=== PATIENT | female | born 1945 | race Caucasian/White ===

== ENCOUNTER → 2016-12-25 | Outpatient (CLI) | payer MEDICARE, OTHER ==
[2016-12-25 10:15] LABS: ADD SCAN DIFF NO
[2016-12-25 10:25] LABS: BASOPHILS % 0.4 % (0.0-2.0); EOSINOPHILS # 0.1 10^3/ul (0.0-0.5); EOSINOPHILS % 1.3 % (0.0-7.0); HEMATOCRIT 40.4 % (37.0-47.0); HEMOGLOBIN 13.8 g/dl (12.0-16.0); LYMPHOCYTES # 2.8 10^3/ul (0.8-2.9); LYMPHOCYTES % 30.4 % (15.0-51.0); MEAN CORPUSCULAR HEMOGLOBIN 30.5 pg (29.0-33.0); MEAN CORPUSCULAR HGB CONC 34.2 g/dl (32.0-37.0); MEAN CORPUSCULAR VOLUME 89.2 fl (82.0-101.0); MEAN PLATELET VOLUME 9.1 fl (7.4-10.4); MONOCYTE # 0.8 10^3/ul (0.3-0.9); MONOCYTES % 8.4 % (0.0-11.0); NEUTROPHIL # 5.4 10^3/ul (1.6-7.5); NEUTROPHILS % 59.4 % (39.0-77.0); PLATELET COUNT 275 10^3/UL (140-415); RED BLOOD COUNT 4.53 10^6/ul (4.20-5.40); RED CELL DISTRIBUTION WIDTH 12.9 % (11.5-14.5); WHITE BLOOD COUNT 9.1 10^3/ul (4.8-10.8)
[2016-12-25 10:29] LABS: ALBUMIN 4.3 g/dl (3.3-4.9); POTASSIUM 4.9 mmol/L (3.5-5.1)
[2016-12-25 10:31] LABS: CREATININE 0.88 mg/dl (0.44-1.00)
[2016-12-25 10:32] LABS: ALBUMIN/GLOBULIN RATIO 1.16; BILIRUBIN,INDIRECT 0.5 mg/dl (0-1.1); BILIRUBIN,TOTAL 0.5 mg/dl (0.2-1.3); CALCIUM 9.5 mg/dl (8.4-10.2); CHOL/HDL RATIO 2.6 RATIO
[2016-12-26 16:02] LABS: MICROALBUMIN 1.3 mg/dL
== END | disposition home or self-care (01) ==
LOC: LAB 09:48
PROVIDERS: ATTEND Internal Medicine Nephrology
DX: E11.9 Type 2 diabetes mellitus without complications (principal)
CPT/HCPCS: 80053; 80061; 82043; 82652; 83036; 85025

== ENCOUNTER → 2017-01-09 | Outpatient (CLI) | payer MEDICARE, OTHER | END | disposition home or self-care (01) | LOC: EKG 08:48 | PROVIDERS: ATTEND Internal Medicine Nephrology | DX: E11.9 Type 2 diabetes mellitus without complications (principal); I10 Essential (primary) hypertension | CPT/HCPCS: 93005; 93306 ==

== ENCOUNTER 2017-05-28 08:00 | Emergency (ER) | payer MEDICARE, OTHER ==
[~2017-05-28] VITALS: Ht 152.4 cm; Wt 58.0 kg
[2017-05-28 08:03] VITALS: Ht 152.4 cm; Wt 58.0 kg
--- NOTE | 2017-05-28 08:33 | ERD ---
ER Documentation Chief Complaint Date/Time DATE: 05/28/17 TIME: 08:29 Chief Complaint bleeding gums this morning, resolved now, not taking blood thinners HPI Patient is a 71-year-old female who presents stating that early this morning at about 5 AM her right upper gums were bleeding. She then soaked a cotton ball and hydrogen peroxide and applied it to the area and applied pressure and it has now resolved. She states she takes aspirin daily. She denies any pain. Denies trauma. Denies any difficulty eating drinking or swallowing. She has not seen a dentist and denies any recent dental work. No fever. No lightheadedness, headache, or dizziness. ROS All systems reviewed and are negative except as per history of present illness. Allergies Allergies: Coded Allergies: Penicillins (Verified Allergy, Mild, rash, 05/28/17) PMhx/Soc Medical and Surgical Hx: pt denies Medical Hx, pt denies Surgical Hx Hx Alcohol Use: No Hx Substance Use: No Hx Tobacco Use: No Smoking Status: Never smoker FmHx Family History: diabetes Physical Exam Vitals Vital Signs Date Time Temp Pulse Resp B/P Pulse Ox O2 Delivery O2 Flow Rate FiO2 05/28/17 08:03 98.2 80 18 175/77 99 Physical Exam INITIAL VITAL SIGNS: Reviewed by me GENERAL: Awake, alert and oriented x 4, well appearing, nontoxic, speaking in full sentences. No acute distress HEAD: Atraumatic EYES: EOMI. PERRL. NOSE: Normal nose. THROAT: No tonilar erythema or edema. No exudates. Uvula midline. No kissing tonsils. no active bleeding NECK: Supple. No masses. Full range of motion. No meningismus. No midline tenderness. RESPIRATORY: Clear to auscultation bilaterally. Symmetric chest wall rise. No wheezing or rales. No accessory muscle use. CV: Regular rate and rhythm. No murmurs, rubs, or gallops. Procedures/MDM 71-year-old female presents because she had bleeding from her gums this morning. The bleeding is now resolved. She has no headache or dizziness. No pain. No fever. Her exam is normal. Patient's blood pressure was elevated (> 120/80) but appears stable without evidence of hypertension emergency or urgency. The patient was counseled about the risks of hypertension and urged to pursue outpatient monitoring and therapy within a week with their primary care physician. I also recommended she follow up with the dentist. No evidence of oral infection at this time. Patient counseled regarding my diagnostic impression and care plan. Prior to discharge all questions answered. Pt agrees with treatment plan and understands strict return precautions. Pt is instructed to follow up with primary care provider within 24-48 hours. Precautionary instructions provided including instructions to return to the ER if not improving or for any worsening or changing symptoms or concerns. Departure Diagnosis: Primary Impression: Bleeding gums Condition: Stable Patient Instructions: Dental Pain Additional Instructions: Llame al doctor MONIKA y jaydon wilver ALINA PARA DENTRO DE 1-2 CURRY.Dgale a la secretaria que nosotros le instruimos hacer esta alina.Avise o llame si nair condicin se empeora antes de la alina. Regresa aqui si peor o no mejor. JOANNA HOPPER PA-C May 28, 2017 08:33
== END 2017-05-28 08:39 | disposition home or self-care (01) ==
LOC: FTE 08:00
DX: K06.8 Other specified disorders of gingiva and edentulous alveolar ridge (principal)
CPT/HCPCS: 99282

== ENCOUNTER 2017-06-02 12:21 | Emergency (ER) | payer MEDICARE, OTHER ==
[~2017-06-02] VITALS: Ht 170.2 cm; Wt 98.7 kg
[2017-06-02 12:29] VITALS: Ht 170.2 cm; Wt 98.7 kg
[2017-06-02 13:19] LABS: BASOPHIL # 0.1 10^3/ul (0.0-0.1); BASOPHILS % 0.6 % (0.0-2.0); EOSINOPHILS # 0.3 10^3/ul (0.0-0.5); EOSINOPHILS % 2.7 % (0.0-7.0); HEMOGLOBIN 14.3 g/dl (12.0-16.0); LYMPHOCYTES # 2.7 10^3/ul (0.8-2.9); LYMPHOCYTES % 22.9 % (15.0-51.0); MEAN CORPUSCULAR HEMOGLOBIN 31.2 pg (29.0-33.0); MEAN CORPUSCULAR HGB CONC 35.8 g/dl (32.0-37.0); MEAN CORPUSCULAR VOLUME 87.1 fl (82.0-101.0); MEAN PLATELET VOLUME 9.1 fl (7.4-10.4); MONOCYTE # 0.9 10^3/ul (0.3-0.9); MONOCYTES % 7.5 % (0.0-11.0); NEUTROPHIL # 7.7 10^3/ul (1.6-7.5); PLATELET COUNT 287 10^3/UL (140-415); RED BLOOD COUNT 4.59 10^6/ul (4.20-5.40); RED CELL DISTRIBUTION WIDTH 12.8 % (11.5-14.5); WHITE BLOOD COUNT 11.7 10^3/ul (4.8-10.8)
[2017-06-02 13:32] LABS: INR 0.89; PT RATIO 0.9
[2017-06-02 13:33] LABS: PARTIAL THROMBOPLASTIN TIME 28.2 Sec (25.0-35.0)
[2017-06-02 14:23] LABS: ALBUMIN 4.9 g/dl (3.3-4.9); ALBUMIN/GLOBULIN RATIO 1.48; BILIRUBIN,INDIRECT 0.3 mg/dl (0-1.1); BILIRUBIN,TOTAL 0.3 mg/dl (0.2-1.3); CALCIUM 10.3 mg/dl (8.4-10.2); CREATININE 0.92 mg/dl (0.44-1.00); POTASSIUM 4.3 mmol/L (3.5-5.1); TOTAL PROTEIN 8.2 g/dl (6.1-8.1)
--- NOTE | 2017-06-02 20:27 | ERD ---
ER Documentation Chief Complaint Date/Time DATE: 06/02/17 TIME: 20:15 Chief Complaint bleeding gums x 6 days , dentist x 6 days ago , no blood thiinners HPI 71-year-old female brought in by her daughter complaining of bleeding in her gums. Patient stated that she was seen here 5 days ago for the bleeding in her right upper gum. The bleeding had resolved at that time. She was told to follow-up with a dentist. She went to the dentist the following day, and was told that her gums are fine. This morning, she started bleeding again. She apply cotton ball to the gum to stop the bleeding. She called her PCP, Dr. Darvin Marquez this morning for an appointment. She was told by her doctor office to come to ED if to get a blood test done. Patient reports feeling tired , but denies fever or chills. Denies trauma. Denies headache. Denies chest pain. Denies shortness of breath. Patient has history of diabetes, hypertension, hypercholesterolemia, and glaucoma. ROS All systems reviewed and are negative except as per history of present illness. Allergies Allergies: Coded Allergies: Penicillins (Verified Allergy, Mild, rash, 05/28/17) PMhx/Soc History of Surgery: No Anesthesia Reaction: No Hx Neurological Disorder: No Hx Respiratory Disorders: No Hx Cardiac Disorders: Yes (HTN) Hx Psychiatric Problems: No Hx Miscellaneous Medical Probl: Yes (DIABETES) Hx Alcohol Use: No Hx Substance Use: No Hx Tobacco Use: No Smoking Status: Never smoker Physical Exam Vitals Vital Signs Date Time Temp Pulse Resp B/P Pulse Ox O2 Delivery O2 Flow Rate FiO2 06/02/17 12:29 98.6 74 17 196/88 100 Physical Exam General: Well-developed, well-nourished, conscious and coherent, in no distress Skin: Warm and dry without rash, good texture and turgor Head: Normocephalic without evidence of trauma Eyes: Sclera and conjunctivae normal; pupils equal, round, and reactive to light; extraocular movements are intact Mouth/throat: Mucous membranes are moist. Cotton balls removed from patient' s mouth, partially soaked with old blood. No active gum bleeding noted. Neck: Supple without meningismus or adenopathy. Carotids are equal. Trachea midline. No bruits or JVD Chest: Normal AP diameter. Good expansion without retractions. Nontender. Lungs are clear to auscultate bilaterally with good tidal volume Heart: Regular rate and rhythm. No murmur, rub, or gallops heard Extremities: Full range of motion. Good strength bilaterally. No clubbing, cyanosis, or edema. Peripheral pulses are intact. Sensation intact Neuro: Alert and oriented 4, GCS 15. Cranial nerves grossly intact. Motor and sensory exams nonfocal. Moves all extremities. Speech clear. Gait normal Result Diagram: 06/02/17 1310 06/02/17 1310 Results 24 hrs Laboratory Tests Test 06/02/17 13:10 White Blood Count 11.710^3/ul Red Blood Count 4.5910^6/ul Hemoglobin 14.3g/dl Hematocrit 40.0% Mean Corpuscular Volume 87.1fl Mean Corpuscular Hemoglobin 31.2pg Mean Corpuscular Hemoglobin Concent 35.8g/dl Red Cell Distribution Width 12.8% Platelet Count 21291^3/UL Mean Platelet Volume 9.1fl Neutrophils % 66.0% Lymphocytes % 22.9% Monocytes % 7.5% Eosinophils % 2.7% Basophils % 0.6% Nucleated Red Blood Cells % 0.0/100WBC Neutrophils # 7.710^3/ul Lymphocytes # 2.710^3/ul Monocytes # 0.910^3/ul Eosinophils # 0.310^3/ul Basophils # 0.110^3/ul Nucleated Red Blood Cells # 0.010^3/ul Prothrombin Time 12.0Sec Prothrombin Time Ratio 0.9 INR International Normalized Ratio 0.89 Activated Partial Thromboplast Time 28.2Sec Sodium Level 140mmol/L Potassium Level 4.3mmol/L Chloride Level 102mmol/L Carbon Dioxide Level 22mmol/L Anion Gap 20 Blood Urea Nitrogen 12mg/dl Creatinine 0.92mg/dl Glucose Level 69mg/dl Calcium Level 10.3mg/dl Total Bilirubin 0.3mg/dl Direct Bilirubin 0.00mg/dl Indirect Bilirubin 0.3mg/dl Aspartate Amino Transf (AST/SGOT) 33IU/L Alanine Aminotransferase (ALT/SGPT) 37IU/L Alkaline Phosphatase 85IU/L Total Protein 8.2g/dl Albumin 4.9g/dl Globulin 3.30g/dl Albumin/Globulin Ratio 1.48 Procedures/MDM Well-appearing 71-year-old female presented to ED with 2 episodes gum bleeding in the last week. CBC, CMP, PT/PTT was obtained. All were unremarkable. Although patient did not tell me she is taking aspirin when asked about her daily medications, review of her previous visit records show that she does take aspirin daily. Patient's blood pressure today is also elevated, likely contribute to her gum bleeding. Patient is under the care of her PCP for diabetes and hypertension, I do not think that she has a hypertensive crisis at this time. Patient appears well, stable for discharge and outpatient management. Medical decision making shared with patient and family. Education provided to patient and family. Patient and family expressed understanding of the plan. Medications on discharge: None. Follow-up: Primary care provider in 2-3 days or return to ED if worse. Disclaimer: Inadvertent spelling and grammatical errors are likely due to EHR/ dictation software use and do not reflect on the overall quality of patient care. Also, please note that the electronic time recorded on this note does not necessarily reflect the actual time of the patient encounter. Departure Diagnosis: Primary Impression: Bleeding gums Condition: Stable Patient Instructions: Understanding Healthy Teeth and Gums Additional Instructions: Llame al doctor MAANA y jaydon wilver ALINA PARA DENTRO DE 2-3 CURRY.Dgale a la secretaria que nosotros le instruimos hacer esta alina.Avise o llame si nair condicin se empeora antes de la alina. Regresa aqui si peor o no mejor. PATO SOLIS NP Jun 02, 2017 20:27
== END 2017-06-02 14:57 | disposition home or self-care (01) ==
LOC: FTE 12:21
DX: K06.8 Other specified disorders of gingiva and edentulous alveolar ridge (principal); I10 Essential (primary) hypertension; E11.9 Type 2 diabetes mellitus without complications
CPT/HCPCS: 80053; 85025; 85610; 85730; 99283

== ENCOUNTER → 2017-07-07 | Outpatient (CLI) | payer MEDICARE, OTHER ==
[2017-07-07 11:04] LABS: BASOPHIL # 0.1 10^3/ul (0.0-0.1); BASOPHILS % 0.7 % (0.0-2.0); EOSINOPHILS # 0.5 10^3/ul (0.0-0.5); EOSINOPHILS % 4.3 % (0.0-7.0); HEMATOCRIT 40.2 % (37.0-47.0); HEMOGLOBIN 13.8 g/dl (12.0-16.0); LYMPHOCYTES # 3.1 10^3/ul (0.8-2.9); MEAN CORPUSCULAR HEMOGLOBIN 31.1 pg (29.0-33.0); MEAN CORPUSCULAR HGB CONC 34.3 g/dl (32.0-37.0); MEAN CORPUSCULAR VOLUME 90.5 fl (82.0-101.0); MEAN PLATELET VOLUME 8.9 fl (7.4-10.4); MONOCYTE # 0.8 10^3/ul (0.3-0.9); MONOCYTES % 7.2 % (0.0-11.0); NEUTROPHILS % 58.5 % (39.0-77.0); PLATELET COUNT 290 10^3/UL (140-415); RED BLOOD COUNT 4.44 10^6/ul (4.20-5.40); RED CELL DISTRIBUTION WIDTH 12.8 % (11.5-14.5); WHITE BLOOD COUNT 10.6 10^3/ul (4.8-10.8)
[2017-07-07 11:29] LABS: ALBUMIN 4.4 g/dl (3.3-4.9); ALBUMIN/GLOBULIN RATIO 1.25; BILIRUBIN,INDIRECT 0.4 mg/dl (0-1.1); BILIRUBIN,TOTAL 0.4 mg/dl (0.2-1.3); CALCIUM 9.9 mg/dl (8.4-10.2); CREATININE 0.95 mg/dl (0.44-1.00); POTASSIUM 4.6 mmol/L (3.5-5.1); TOTAL PROTEIN 7.9 g/dl (6.1-8.1); URIC ACID 4.5 mg/dl (3.1-7.9)
[2017-07-07 11:57] LABS: ADD UMIC YES; UR ASCORBIC ACID NEGATIVE (NEGATIVE); UR BILIRUBIN (Dip) NEGATIVE (NEGATIVE); UR BLOOD (Dip) NEGATIVE (NEGATIVE); UR CLARITY CLEAR (CLEAR); UR COLOR YELLOW (YELLOW); UR GLUCOSE (Dip) 1+ mg/dL (NEGATIVE); UR KETONES (Dip) TRACE mg/dL (NEGATIVE); UR LEUKOCYTE ESTERASE (Dip) 1+ Leu/ul (NEGATIVE); UR NITRITE (Dip) NEGATIVE (NEGATIVE); UR RBC 2 /HPF (0-5); UR TOTAL PROTEIN (Dip) NEGATIVE (NEGATIVE); UR UROBILINOGEN (Dip) NEGATIVE (NEGATIVE)
[2017-07-08 14:32] LABS: MICROALBUMIN 0.6 mg/dL
== END | disposition home or self-care (01) ==
LOC: LAB 10:32
PROVIDERS: ATTEND Internal Medicine Nephrology
DX: N18.9 Chronic kidney disease, unspecified (principal); E11.29 Type 2 diabetes mellitus with other diabetic kidney complication
CPT/HCPCS: 80053; 80061; 81001; 82043; 83036; 84560; 85025

== ENCOUNTER → 2017-11-19 | Outpatient (CLI) | END | disposition home or self-care (01) ==

== ENCOUNTER → 2018-01-07 | Outpatient (CLI) | END | disposition home or self-care (01) ==

== ENCOUNTER → 2018-02-19 | Outpatient (CLI) | END | disposition home or self-care (01) ==

== ENCOUNTER → 2018-06-08 | Outpatient (CLI) | END | disposition home or self-care (01) ==

== ENCOUNTER → 2019-01-19 | Outpatient (CLI) | payer MEDICARE, OTHER | END | disposition home or self-care (01) | LOC: LAB 10:28 | PROVIDERS: ATTEND Internal Medicine Nephrology | DX: N18.9 Chronic kidney disease, unspecified (principal); E11.8 Type 2 diabetes mellitus with unspecified complications | CPT/HCPCS: 80053; 80061; 81001; 82043; 83036; 85025; 85610; 85730 ==

== ENCOUNTER 2019-05-03 11:06 | Emergency (ER) | payer MEDICARE, OTHER ==
[~2019-05-03] VITALS: Ht 157.5 cm; Wt 55.5 kg
[2019-05-03 11:13] VITALS: BP 173/73; PULSE 73; RESP 18; Ht 157.5 cm; Wt 55.5 kg
[2019-05-03] MEDS ORDERED: HC30CR25 TOP (12:07)
--- NOTE | 2019-05-03 13:13 | ERD ---
ER Documentation Chief Complaint Chief Complaint painful itchy possible bites bilateral ankle x4 days HPI Patient is a 73-year-old female with hypertension and diabetes who presents with bites to the legs bilaterally. The patient said that she was in her garden on Friday and noticed insect bites to the bilateral ankles. The area of the bites are red and itchy. She tried hot salt water and triple antibiotic ointment. Her primary doctor is Dr. Marquez. She has had no fevers. ROS All systems reviewed and are negative except as per history of present illness. Medications Home Meds Active Scripts Hydrocortisone* Topical (Hydrocortisone* Topical) 2.5%-28.3 Gm Cream..g., 1 APPLIC TOP BID, #1 TUB Prov:MINNIE MORAN MD 05/03/19 Allergies Allergies: Coded Allergies: Penicillins (Verified Allergy, Mild, rash, 05/28/17) PMhx/Soc Medical and Surgical Hx: pt denies Medical Hx, pt denies Surgical Hx History of Surgery: No Anesthesia Reaction: No Hx Neurological Disorder: No Hx Respiratory Disorders: No Hx Cardiac Disorders: Yes (HTN) Hx Psychiatric Problems: No Hx Miscellaneous Medical Probl: Yes (DIABETES) Hx Alcohol Use: No Hx Substance Use: No Hx Tobacco Use: No Smoking Status: Never smoker FmHx Family History: No diabetes Physical Exam Vitals Vital Signs Date Temp Pulse Resp B/P (MAP) Pulse Ox O2 O2 Flow FiO2 Time Delivery Rate 05/03/19 98.0 73 18 173/73 100 11:13 (106) Physical Exam Const: No acute distress Head: Atraumatic Eyes: Normal Conjunctiva ENT: Normal External Ears, Nose and Mouth. Neck: Full range of motion. No meningismus. Resp: Clear to auscultation bilaterally Cardio: Regular rate and rhythm, no murmurs Abd: Soft, non tender, non distended. Normal bowel sounds Skin: Erythema and circular fashion to the bilateral ankles consistent with insect bites and local irritation Back: No midline or flank tenderness Ext: No cyanosis, or edema Neur: Awake and alert Psych: Normal Mood and Affect Procedures/MDM Patient is a 73-year-old female who presents with bilateral lower extremity insect bites. The patient will be given a prescription for hydrocortisone cream to apply to the affected areas. I do not believe she has cellulitis or other serious infection at this time. I believe outpatient management is appropriate. The patient will be discharged and can return for any worsening symptoms. Departure Diagnosis: Primary Impression: Insect bites Encounter type: initial encounter Site of insect bite: ankle Laterality: unspecified laterality Qualified Codes: S90.569A - Insect bite (nonvenomous), unspecified ankle, initial encounter; W57.XXXA - Bitten or stung by nonvenomous insect and other nonvenomous arthropods, initial encounter Condition: Fair Patient Instructions: Insect Bite Additional Instructions: Llame al doctor nombrado abajo (Referral Sources) MAANA y jaydon wilver ALINA PARA DENTRO DE WILVER SEMANA. Dgale a la secretaria que nosotros le instruimos hacer esta alina.Avise o llame si nair condicin se empeora antes de la alina. MINNIE MORAN MD May 03, 2019 13:13
== END 2019-05-03 12:05 | disposition home or self-care (01) ==
LOC: FTE 11:06
DX: S90.569A Insect bite (nonvenomous), unspecified ankle, initial encounter (principal); W57.XXXA Bitten or stung by nonvenomous insect and other nonvenomous arthropods, initial encounter; Y92.9 Unspecified place or not applicable
CPT/HCPCS: 99283